=== PATIENT | female | born 1955 | race Caucasian/White ===

== ENCOUNTER 2016-12-07 22:06 | Emergency (ER) | payer BC ==
[~2016-12-07] VITALS: Ht 167.6 cm; Wt 81.1 kg
[~2016-12-07 22:06] MED LIST: COLACE100 MG PO; FLOMAX0.4 MG PO; PERCOCET 5/31 TABLET PO; UROCIT-K15 MEQ PO; VENTOLIN HFA18 GM IH; VITAMIN D32000 UNI1 PO; ZOFRAN4 MG PO
[2016-12-07 22:38] LABS: ADD MIUA? YES; BILIRUBIN NEGATIVE; BLOOD LARGE; COLOR YELLOW ((YELLOW)); GLUCOSE (STRIP) NEGATIVE; KETONES 20; LEUKOCYTES NEGATIVE; NITRITE NEGATIVE; PROTEIN (STRIP) 100; SPECIFIC GRAVITY 1.023 (1.000-1.030); UROBILINOGEN 0.2 MG/DL (0.2-1.0)
[2016-12-07 22:56] LABS: HEMATOCRIT 39.2 % (36.0-46.0); MCH 29.1 PG (29.0-34.0); MCHC 32.9 G/DL (30.0-36.0); MCV 88.5 FL (83-99); MEAN PLAT.VOLUME 9.8 uM^3 (9.5-12.4); PLATELET COUNT 202 K/uL (156-360); RBC DIS.WIDTH-CV 12.7 % (11.8-14.6); RED BLOOD COUNT 4.43 M/uL (3.80-5.20); WHITE BLOOD COUNT 11.9 K/uL (4.1-10.2)
[2016-12-07 22:57] LABS: RED BLOOD CELLS TNTC /HPF (0-5)
[2016-12-07 22:58] LABS: BACTERIA 1+ /HPF; CASTS NONE SEEN /LPF; CRYSTALS NONE SEEN; EPITHELIAL CELLS 1+ /HPF; MUCUS 1+ /LPF; UCUL ADDED? YES; WHITE BLOOD CELLS 0-5 /HPF (0-5)
[2016-12-07 23:07] LABS: CHLORIDE 102 mEq/L (99-109); POTASSIUM 4.2 mEq/L (3.7-5.4); SODIUM 138 mEq/L (136-147)
[2016-12-07 23:09] LABS: GLUCOSE 143 mg/dL (70-99)
[2016-12-07 23:10] LABS: ANION GAP 12 MEQ/L (2-14)
[2016-12-07 23:13] LABS: GFR ESTIMATE (CALCULATED) > 59 mL/min/
[2016-12-07 23:14] LABS: UREA NITROGEN (BUN) 18 mg/dL (9-23)
[2016-12-07] MEDS ORDERED: PERCOCET 5/31 TABLET PO (23:49)
[2016-12-07] MEDS ORDERED: ZOFRAN4 MG PO (23:49)
[2016-12-08 00:18] VITALS: BP 144/84
== END 2016-12-08 00:22 | disposition home or self-care (01) ==
LOC: EME 22:06
DX: N13.2 Hydronephrosis with renal and ureteral calculous obstruction (principal); Z90.710 Acquired absence of both cervix and uterus; Z87.442 Personal history of urinary calculi
CPT/HCPCS: 74176; 80048; 81003; 85027; 87086; 99281; 99283